=== PATIENT | male | born 1970 | race American Indian/Alaskan Native ===

== ENCOUNTER 2016-09-12 02:07 | Emergency (ER) | payer MEDICAID ==
[2016-09-12 02:33] VITALS: BP 162/93
[2016-09-12] MEDS ORDERED: NAPROXEN PO STA (03:23)
[2016-09-12] MEDS ORDERED: Ibuprofen 800 MG Tab PO ONE (03:32)
[2016-09-12] MEDS ORDERED: ALPRAZolam 0.25 MG Tab PO ONE (03:52)
[2016-09-12] MEDS ORDERED: Triamcinolone Acetonide 40 MG/ML 1 ML MDV INJECT PRN (04:39)
[2016-09-12] MEDS ORDERED: Lidocaine 1% PF 2 ML SDV INJECT ONE (04:40)
--- NOTE | 2016-09-12 05:10 | EDM.PDOC ---
ED HPI NEURO - General Chief Complaint: Neuro Symptoms/Deficits Stated Complaint: FEELING FUNNY, HX SEIZURES Time Seen by Provider: 09/12/16 03:27 Source: Reports: Patient History Limitations: Reports: No limitations - History of Present Illness INITIAL COMMENTS - FREE TEXT/NARRATIVE: History of present illness: [45-year-old male with a history of polysubstance abuse presents complaining of right shoulder pain and also worried that he is going to have a seizure. He states that he has a metallic taste in his mouth and that is what usually occurs before he has a seizure and so he is worried he is going to have one. He looks comfortable and is anxious to watch TV and be on his phone while he is here.] Review of systems: As per history of present illness and below otherwise all systems reviewed and negative. Past medical history: As per history of present illness and as reviewed below otherwise noncontributory. Surgical history: As per history of present illness and as reviewed below otherwise noncontributory. Social history: No reported history of drug or alcohol abuse. Family history: As per history of present illness and as reviewed below otherwise noncontributory. Physical exam: HEENT: Atraumatic, normocephalic, pupils reactive, negative for conjunctival pallor or scleral icterus, mucous membranes moist, throat clear, neck supple, nontender, trachea midline. Lungs: Clear to auscultation, breath sounds equal bilaterally, chest nontender. Heart: S1S2, regular, negative for clicks, rubs, or JVD. Abdomen: Soft, nondistended, nontender. Negative for masses or hepatosplenomegaly. Pelvis: Stable nontender. Genitourinary: Deferred. Rectal: Deferred. Extremities: He does have some discomfort in the region of the right rotator cuff area and is unable to abduct his arm beyond 45. He is right-hand Neuro: Awake, alert, oriented. Exam nonfocal. Procedure I discussed with him the pain in his right shoulder and rotator cuff and that sometimes an injection it helped this problem. He consented to have the inject steroids and lidocaine into his right shoulder. The area was swabbed with Betadine and then wiped with an alcohol swab 3 mL of a mixture of 40 mg of Kenalog and 2 mL of 1% lidocaine were then injected underneath the acromion process without difficulty. 10 minutes after the procedure he stated that he received no relief of the discomfort he was having his shoulder. Diagnostics: [CBC and complete panel were unremarkable] Therapeutics: [I did give him Xanax 2 mg by mouth and 800 mg Motrin. He is apparently due for refills in a week for his Xanax and was requesting that I refill his meds for a week. This is declined] Impression: [Right rotator cuff syndrome Seizure disorder] Plan: [I am also filling out a referral for physical therapy for his right shoulder and advising him to establish with a primary care provider.] Definitive disposition and diagnosis as appropriate pending reevaluation and review of above. - Related Data Allergies/ADRs: Allergies Allergy/AdvReac Type Severity Reaction Status Date / Time codeine AdvReac Severe Nausea Verified 11/24/15 01:59 Home Meds: Home Meds ALPRAZolam [Xanax] 2 mg PO TID 09/21/13 [History] PARoxetine HCl [Paroxetine HCl] 40 mg PO BID 09/21/13 [History] Zolpidem [Ambien] 10 mg PO BEDTIME PRN 09/21/13 [History] Phenytoin Sodium Extended [Dilantin] 30 mg PO BID 09/12/16 [History] Past Medical History HEENT History: Reports: Other (see below) Other HEENT History: hx orbital fracture. hx fx facial bones Cardiovascular History: Reports: CAD, [place], Other (see below) Other Cardiovascular History: rhabdomyolsis Musculoskeletal History: Reports: Fracture Neurological History: Reports: Concussion, Seizure Psychiatric History: Reports: Addiction, Anxiety, Depression Other Psychiatric History: Past IV drug user - Infectious Disease History Infectious Disease History: Reports: Chicken pox - Past Surgical History Cardiovascular Surgical History: Reports: Other (see below) Other Cardiovascular Surgeries/Procedures: rhabdomyolsis Other Musculoskeletal Surgeries/Procedures:: plastic surgery l cheek Social & Family History - Tobacco Use Smoking Status *Q: Current Every Day Smoker Years of Tobacco use: 27 Packs/Tins Daily: 0.5 Used Tobacco, but Quit: No Second Hand Smoke Exposure: No - Alcohol Use Days Per Week of Alcohol Use: 0 - Recreational Drug Use Recreational Drug Use: Yes Drug Use in Last 12 Months: Yes Recreational Drug Type: Reports: Marijuana/Hashish Recreational Drug Use Frequency: Rarely ED ROS GENERAL - Review of Systems Review Of Systems: ROS reveals no pertinent complaints other than HPI. ED EXAM, NEURO - Physical Exam Exam: See Below Course - Vital Signs Last Recorded V/S: Last Vital Signs Temp 37.2 C 09/12/16 02:32 Pulse 77 09/12/16 02:32 Resp 20 09/12/16 02:32 BP 162/93 H 09/12/16 02:32 Pulse Ox 98 09/12/16 02:32 - Orders/Labs/Meds Labs: Laboratory Tests 09/12/16 09/12/16 Range/Units 03:25 03:25 WBC 8.8 (4.5-11.0) K/uL RBC 5.08 (4.30-5.90) M/uL Hgb 15.1 H (12.0-15.0) g/dL Hct 43.4 (40.0-54.0) % MCV 85 (80-98) fL MCH 30 (27-31) pg MCHC 35 (32-36) % Plt Count (150-400) K/uL Neut % (Auto) 49 (36-66) % Lymph % (Auto) 35 (24-44) % Andrews % (Auto) 13 H (2-6) % Eos % (Auto) 2 (2-4) % Baso % (Auto) 1 (0-1) % Sodium 142 (140-148) mmol/L Potassium 4.7 (3.6-5.2) mmol/L Chloride 107 (100-108) mmol/L Carbon Dioxide 25 (21-32) mmol/L Anion Gap 9.7 (5.0-14.0) mmol/L BUN 21 H D (7-18) mg/dL Creatinine 1.2 (0.8-1.3) mg/dL Est Cr Clr Drug Dosing 83.32 mL/min Estimated GFR (MDRD) > 60 (>60) Glucose 94 (74-106) mg/dL Calcium 8.4 L (8.5-10.1) mg/dL Total Bilirubin 0.3 (0.2-1.0) mg/dL AST 34 (15-37) U/L ALT 34 (12-78) U/L Alkaline Phosphatase 61 (46-116) U/L Total Protein 7.9 (6.4-8.2) g/dL Albumin 4.0 (3.4-5.0) g/dL Globulin 3.9 H (2.3-3.5) g/dL Albumin/Globulin Ratio 1.0 L (1.2-2.2) Meds: Medications Discontinued Medications Generic Name Dose Route Start Last Admin Trade Name Freq PRN Reason Stop Dose Admin Alprazolam 2 mg 09/12/16 03:52 09/12/16 04:01 Xanax PO 09/12/16 03:53 2 mg ONETIME ONE Administration Ibuprofen 800 mg 09/12/16 03:32 09/12/16 03:36 Motrin PO 09/12/16 03:33 800 mg ONETIME ONE Administration Lidocaine HCl 2 ml 09/12/16 04:40 09/12/16 04:52 Xylocaine-Mpf 1% INJECT 09/12/16 04:41 2 ml ONETIME ONE Administration Naproxen 500 mg 09/12/16 03:23 Naprosyn PO 09/12/16 03:24 NOW STA Triamcinolone Acetonide 40 mg 09/12/16 04:39 09/12/16 04:52 Kenalog-40 INJECT 09/12/16 04:40 40 mg ASDIRECTED PRN Administration Pain Departure - Departure Time of Disposition: 05:10 Disposition: Home, Self-Care 01 Condition: good Clinical Impression: Seizure disorder Right rotator cuff tear Qualifiers: Rotator cuff tear extent: unspecified tear extent Qualified Code(s): M75.101 - Unspecified rotator cuff tear or rupture of right shoulder, not specified as traumatic Forms: ED Department Discharge
== END 2016-09-12 05:23 | disposition home or self-care (01) ==
LOC: JP.ED 02:07
DX: M75.101 Unspecified rotator cuff tear or rupture of right shoulder, not specified as traumatic (principal); G40.909 Epilepsy, unspecified, not intractable, without status epilepticus; I25.10 Atherosclerotic heart disease of native coronary artery without angina pectoris; I25.2 Old myocardial infarction; F41.9 Anxiety disorder, unspecified; F17.210 Nicotine dependence, cigarettes, uncomplicated; Z98.890 Other specified postprocedural states; Z88.5 Allergy status to narcotic agent
CPT/HCPCS: 20610; 36415; 80053; 85025; 96372; 99284; A9270; J3301

== ENCOUNTER 2016-10-23 21:23 | Emergency (ER) | payer MEDICAID ==
[2016-10-23 21:27] VITALS: BP 163/106
[2016-10-23] MEDS ORDERED: diphenhydrAMINE 50 MG/ML SDV IVPUSH ONE (21:33)
[2016-10-23] MEDS ORDERED: methylPREDNISolone Sodium Succinate 125 MG/2 ML SDV IVPUSH ONE (21:35)
[2016-10-23] MEDS ORDERED: Sodium Chloride 0.9% 1,000 ML IV SCH (21:45)
[2016-10-23] MEDS ORDERED: diphenhydrAMINE 50 MG/ML SDV IM ONE (21:47)
[2016-10-23] MEDS ORDERED: methylPREDNISolone Sodium Succinate 125 MG/2 ML SDV IM ONE (21:48)
[2016-10-23] MEDS ORDERED: LORazepam 2 MG/ML MDV IM ONE (22:24)
--- NOTE | 2016-10-23 23:21 | EDM.PDOC ---
ED HPI GENERAL MEDICAL PROBLEM - General Chief Complaint: General Stated Complaint: MOUTH ? Time Seen by Provider: 10/23/16 21:32 Source of Information: Reports: Patient History Limitations: Reports: No Limitations - History of Present Illness INITIAL COMMENTS - FREE TEXT/NARRATIVE: allergic reaction; this is a 45 year old male presents to ER with complaints of tongue feeling thick, jaw tightness and lungs feeling tight. He reports he ate cashews and coconuts about 2 hours prior to symptoms. He denies any drug use. He is very anxious and scared. denies chest pains. Onset: Sudden Duration: Hour(s): (symptoms started 2 hours after eating cashews.) Location: Reports: Generalized Severity: Severe Improves with: Reports: None Worsens with: Reports: None - Related Data Allergies Allergy/AdvReac Type Severity Reaction Status Date / Time codeine AdvReac Severe Nausea Verified 11/24/15 01:59 Home Meds: Home Meds ALPRAZolam [Xanax] 2 mg PO TID 09/21/13 [History] PARoxetine HCl [Paroxetine HCl] 40 mg PO BID 09/21/13 [History] Zolpidem [Ambien] 10 mg PO BEDTIME PRN 09/21/13 [History] Phenytoin Sodium Extended [Dilantin] 30 mg PO BID 09/12/16 [History] Past Medical History HEENT History: Reports: Other (See Below) Other HEENT History: hx orbital fracture. hx fx facial bones Cardiovascular History: Reports: CAD, [place], Other (See Below) Other Cardiovascular History: rhabdomyolsis Musculoskeletal History: Reports: Fracture Neurological History: Reports: Concussion, Seizure Psychiatric History: Reports: Addiction, Anxiety, Depression Other Psychiatric History: Past IV drug user - Infectious Disease History Infectious Disease History: Reports: Chicken Pox - Past Surgical History Cardiovascular Surgical History: Reports: Other (See Below) Social & Family History - Tobacco Use Smoking Status *Q: Current Every Day Smoker Years of Tobacco use: 27 Packs/Tins Daily: 0.5 Used Tobacco, but Quit: No Second Hand Smoke Exposure: No - Alcohol Use Days Per Week of Alcohol Use: 0 - Recreational Drug Use Recreational Drug Use: Yes Drug Use in Last 12 Months: Yes Recreational Drug Type: Reports: Marijuana/Hashish Recreational Drug Use Frequency: Daily - Living Situation & Occupation Living situation: Reports: Single (lives across the [address].) ED ROS GENERAL - Review of Systems Review Of Systems: See Below Constitutional: Reports: Other (anxious, sweating, clenching jaw. ) HEENT: Reports: Eye Pain, Other (teeth with multi decay to gums, many teeth absent) Cardiovascular: Reports: No Symptoms Endocrine: Reports: No Symptoms GI/Abdominal: Reports: No Symptoms : Reports: No Symptoms Musculoskeletal: Reports: No Symptoms Skin: Reports: No Symptoms Neurological: Reports: No Symptoms Psychiatric: Reports: Agitation, Anxiety Hematologic/Lymphatic: Reports: No Symptoms Immunologic: Reports: Food Allergy ED EXAM, GENERAL - Physical Exam Exam: See Below General Appearance: Anxious, Severe Distress Eye Exam: Bilateral Eye: Conjunctival Injection Ears: Normal External Exam, Normal Canal, Hearing Grossly Normal, Normal TMs Nose: Normal Inspection, Normal Mucosa, No Blood Throat/Mouth: Normal Lips, Normal Oropharynx, Normal Voice, No Airway Compromise , Other (severe dental decay.) Head: Atraumatic, Normocephalic Neck: Normal Inspection, Supple, Non-Tender, Full Range of Motion Respiratory/Chest: No Respiratory Distress, Lungs Clear, Normal Breath Sounds, No Accessory Muscle Use, Chest Non-Tender Cardiovascular: Normal Peripheral Pulses, Regular Rate, Rhythm, No Edema, No Murmur Peripheral Pulses: 2+: Brachial (L), Brachial (R), Posterior Tibial (L), Posterior Tibial (R), Dorsalis Pedis (L), Dorsalis Pedis (R) GI/Abdominal: Normal Bowel Sounds, Soft, Non-Tender, No Organomegaly, No Distention, No Abnormal Bruit, No Mass (Male) Exam: Deferred Rectal (Males) Exam: Deferred Back Exam: Normal Inspection, Full Range of Motion Extremities: Normal Inspection, Normal Range of Motion, Non-Tender, No Pedal Edema, Normal Capillary Refill Neurological: Alert, Oriented Psychiatric: Anxious (panic and anxiety attack while in ER) Skin Exam: Warm, Dry, Intact, Normal Color, No Rash Course - Vital Signs Last Recorded V/S: Last Vital Signs Temp 36.8 C 10/23/16 21:25 Pulse 123 H 10/23/16 21:25 Resp 18 10/23/16 21:25 BP 163/106 H 10/23/16 21:25 Pulse Ox 97 10/23/16 21:25 - Orders/Labs/Meds Orders: Active Orders 24 hr Category Date Time Status Sodium Chloride 0.9% [Normal Saline] 1,000 ml Med 10/23/16 21:45 Active IV ASDIRECTED Medication Orders Sodium Chloride (Normal Saline) 1,000 mls @ 500 mls/hr IV ASDIRECTED [facility] Labs: Laboratory Tests 10/23/16 Range/Units 22:34 Urine Opiates Screen Negative (NEGATIVE) Ur Oxycodone Screen Negative (NEGATIVE) Urine Methadone Screen Negative (NEGATIVE) Ur Propoxyphene Screen Negative (NEGATIVE) Ur Barbiturates Screen Positive H (NEGATIVE) Ur Tricyclics Screen Positive H (NEGATIVE) Ur Phencyclidine Scrn Negative (NEGATIVE) Ur Amphetamine Screen Negative (NEGATIVE) U Methamphetamines Scrn Positive H (NEGATIVE) Urine MDMA Screen Negative (NEGATIVE) U Benzodiazepines Scrn Negative (NEGATIVE) U Cocaine Metab Screen Negative (NEGATIVE) U Marijuana (THC) Screen Positive H (NEGATIVE) Meds: Medications Generic Name Dose Route Start Last Admin Trade Name Freq PRN Reason Stop Dose Admin Sodium Chloride 1,000 mls @ 500 mls/hr 10/23/16 21:45 Normal Saline IV ASDIRECTED [facility] Discontinued Medications Generic Name Dose Route Start Last Admin Trade Name Freq PRN Reason Stop Dose Admin Diphenhydramine HCl 25 mg 10/23/16 21:33 Benadryl IVPUSH 10/23/16 21:34 ONETIME ONE Diphenhydramine HCl 50 mg 10/23/16 21:47 10/23/16 21:51 Benadryl IM 10/23/16 21:48 50 mg ONETIME ONE Administration Lorazepam 2 mg 10/23/16 22:24 10/23/16 22:46 Ativan IM 10/23/16 22:25 2 mg ONETIME ONE Administration Methylprednisolone Sodium Succinate 125 mg 10/23/16 21:35 Solu-Medrol IVPUSH 10/23/16 21:36 ONETIME ONE Methylprednisolone Sodium Succinate 125 mg 10/23/16 21:48 10/23/16 21:54 Solu-Medrol IM 10/23/16 21:49 125 mg ONETIME ONE Administration - Re-Assessments/Exams Free Text/Narrative Re-Assessment/Exam: 10/23/16 23:41 while in ER given IM solumedrol 125mg, IM benadryl 50mg still with anxiety, clenching jaw, holding face. reports chest feeling tight, oxygen sats 99%, asked again using any drugs, especially meth, as this can aggravate or cause anxiety, also Mr. Campos reports he is sure it the nuts he ate earlier. Given Ativan 2mg IM, symptoms resolved. urine drug screen; positive for meth, THC, and other chemicals; Mr. Campos denies use of this except for THC. concerns if anxiety panic attack vs true allergic reaction will discharge to home with benadryl and medral dose pack to cover any allergic component. patient then requesting pain medication; denied due to positive drug screen. Departure - Departure Time of Disposition: 23:30 Disposition: Home, Self-Care 01 Condition: good Clinical Impression: Methamphetamine use, Polysubstance abuse, Panic attack, Allergic reaction - Discharge Information Instructions: Panic Attacks, [id number], Stimulant Use Disorder- Methamphetamines Referrals: PCP,None [Primary Care Provider] - Forms: ED Department Discharge Care Plan Goals: panic attack poly-substance drug abuse -advise to not use drugs -drink plenty of fluids -follow up with Primary Care for recheck -return to clinic or er if not improved or symptoms worsen. - Problem List & Annotations (1) Methamphetamine use SNOMED Code(s): 543278598 Code(s): F15.10 - OTHER STIMULANT ABUSE, UNCOMPLICATED Status: Chronic Priority: High Current Visit: Yes (2) Polysubstance abuse SNOMED Code(s): 949363507 Code(s): F19.10 - OTHER PSYCHOACTIVE SUBSTANCE ABUSE, UNCOMPLICATED Status : Chronic Priority: High Current Visit: Yes (3) Panic attack SNOMED Code(s): 935891131 Code(s): F41.0 - PANIC DISORDER WITHOUT AGORAPHOBIA Status: Acute Priority: High Current Visit: Yes (4) Allergic reaction SNOMED Code(s): 809639168 Code(s): T78.40XA - ALLERGY, UNSPECIFIED, INITIAL ENCOUNTER Status: Acute Current Visit: Yes - Problem List Review Problem List Initiated/Reviewed/Updated: Yes - My Orders Last 24 Hours: My Active Orders 10/23/16 21:45 Sodium Chloride 0.9% [Normal Saline] 1,000 ml IV ASDIRECTED - Assessment/Plan Last 24 Hours: My Active Orders 10/23/16 21:45 Sodium Chloride 0.9% [Normal Saline] 1,000 ml IV ASDIRECTED Plan: panic attack poly-substance drug abuse -advise to not use drugs -drink plenty of fluids -follow up with Primary Care for recheck -return to clinic or er if not improved or symptoms worsen.
== END 2016-10-23 23:43 | disposition home or self-care (01) ==
LOC: JP.ED 21:23
DX: T43.621A Poisoning by amphetamines, accidental (unintentional), initial encounter (principal); F19.10 Other psychoactive substance abuse, uncomplicated; T78.40XA Allergy, unspecified, initial encounter; F41.0 Panic disorder [episodic paroxysmal anxiety]; F17.210 Nicotine dependence, cigarettes, uncomplicated; I25.10 Atherosclerotic heart disease of native coronary artery without angina pectoris; I25.2 Old myocardial infarction; Z79.899 Other long term (current) drug therapy; Z88.5 Allergy status to narcotic agent
CPT/HCPCS: 80305; 96372; 99284; J1200; J2060; J2930